=== PATIENT | male | born 1960 | race African-American/Black ===

== ENCOUNTER 2019-01-05 14:58 | Emergency (ER) | payer MEDICAID ==
[~2019-01-05] VITALS: Ht 177.8 cm; Wt 104.5 kg
[~2019-01-05 14:58] MED LIST: AMLO5TAB4 PO; ATEN50TA PO; ATENOLOL; FERR-63 PO; LOSA50TA3 PO; vicodin 5/325 PO
[2019-01-05 15:42] VITALS: BP 193/96
== END 2019-01-05 20:33 | disposition left against medical advice (07) ==
LOC: ER 15:32
DX: R51 Headache (principal); Z53.21 Procedure and treatment not carried out due to patient leaving prior to being seen by health care provider

== ENCOUNTER 2020-01-25 16:42 | Inpatient (IN) | payer MEDICAID ==
[~2020-01-25] VITALS: Ht 180.3 cm; Wt 105.7 kg
[2020-01-25] MEDS ORDERED: SODIUM CHLORIDE 0.9% 1,000 ML IV ONE (17:32)
[2020-01-25] MEDS ORDERED: CLONIDINE 0.1MG TABLET PO ONE ×2 (17:45→19:45)
[2020-01-25 17:46] LABS: CLARITY URINE CLEAR (CLEAR); COLOR URINE DARK YELLOW (YELLOW); KETONES URINE NEGATIVE (NEGATIVE); LEUKOCYTE ESTERASE URINE NEGATIVE (NEGATIVE); NITRITE URINE NEGATIVE (NEGATIVE); OCCULT BLOOD URINE NEGATIVE (NEGATIVE); PH URINE 5.5 (4.5-8.0); PROTEIN URINE NEGATIVE (NEGATIVE); SPECIFIC GRAVITY URINE 1.019 (1.005-1.030)
[2020-01-25 17:53] LABS: EOSINOPHILS % 0.5 % (0.0-5.0); HEMATOCRIT. 47.4 % (42.0-52.0); HEMOGLOBIN. 16.4 g/dL (14.0-18.0); LYMPHOCYTES % 20.9 % (20.0-50.0); MEAN CORPUSCULAR HEMOGLOBIN 31.9 pg (28.0-32.0); MEAN CORPUSCULAR VOLUME 92.6 fL (80.0-94.0); MEAN PLATELET VOLUME 7.9 fl (7.4-10.4); MONOCYTES % 9.9 % (2.0-8.0); NEUTROPHILS % 67.7 % (40.0-76.0); PLATELET 267 x1000/uL (130-400); RED BLOOD CELL COUNT 5.12 mill/uL (4.7-6.1); RED CELL DISTRIBUTION WIDTH 13.3 % (11.6-14.6)
[2020-01-25 17:59] LABS: *BARBITURATES SCREEN URINE NEGATIVE (NEGATIVE)
[2020-01-25 18:00] LABS: CHLORIDE 103 mEq/L (98-107)
[2020-01-25 18:00] LABS: *AMPHETAMINES SCREEN URINE NEGATIVE (NEGATIVE); *BENZODIAZEPINES SCREEN URINE NEGATIVE (NEGATIVE); *COCAINE SCREEN URINE NEGATIVE (NEGATIVE); CANNABINOID URINE SCREEN NEGATIVE (NEGATIVE); METHADONE URINE SCREEN NEGATIVE (NEGATIVE); OPIATES URINE SCREEN NEGATIVE (NEGATIVE); PHENCYCLIDINE URINE SCREEN NEGATIVE (NEGATIVE)
[2020-01-25 18:04] LABS: ETHANOL BLOOD < 10 mg/dL
[2020-01-25 18:14] LABS: PARTIAL THROMBOPLASTIN TIME 30.3 sec (23.4-31.0); PROTHROMBIN TIME 10.8 sec (9.6-11.0)
[2020-01-25] MEDS ORDERED: ONDANSETRON HCL 4MG/2ML INJ IV ONE (19:45)
[2020-01-25] MEDS ORDERED: MORPHINE SULFATE 4 MG/ML CPJ (NOT FOR IM USE) IV ONE (19:45)
[2020-01-26] VITALS: BP 140/72
[2020-01-26 09:00] VITALS: BP 166/80
[2020-01-26] MEDS ORDERED: HYDR-3281 PO (09:28)
[2020-01-26] MEDS ORDERED: ONDANSETRON HCL 4MG/2ML INJ IV PRN (10:15)
[2020-01-26] MEDS ORDERED: IPRATROPIUM/ALBUTEROL 0.5-3(2.5)MG/3ML NEB NEB PRN (10:15)
[2020-01-26] MEDS ORDERED: GUAIFENESIN 200MG/10ML SUGAR FREE UDC PO PRN (10:15)
[2020-01-26] MEDS ORDERED: NA PHOS,M-B/NA PHOS,DI-BA ENEMA 118ML PR PRN (10:15)
[2020-01-26] MEDS ORDERED: ACETAMINOPHEN 650MG SUPP PR PRN ×2 (10:15)
[2020-01-26] MEDS ORDERED: ACETAMINOPHEN 325MG TABLET PO PRN (10:15)
[2020-01-26] MEDS ORDERED: HYDRALAZINE 20MG/ML VIAL IV PRN (10:15)
[2020-01-26] MEDS ORDERED: ACETAMINOPHEN 650MG/20.3ML UDC GT PRN ×2 (10:15)
[2020-01-26] MEDS ORDERED: HYDROCODONE/ACETAMINOPHEN 5/325MG TABLET PO PRN (10:15)
[2020-01-26] MEDS ORDERED: DOCUSATE SODIUM 100MG CAPSULE PO PRN (10:15)
[2020-01-26] MEDS ORDERED: MAGNESIUM/ALUMINUM HYDROXIDE/SIMETHICONE 30ML UDC PO PRN (10:15)
[2020-01-26] MEDS ORDERED: POTASSIUM CHLORIDE 20MEQ TABLET SR PO NR (10:30)
[2020-01-26] MEDS: AMLODIPINE 5MG TABLET PO SCH (10:42)
[2020-01-26] MEDS ORDERED: ENOXAPARIN 40MG/0.4ML SYR SUBCUT SCH (11:00)
[2020-01-26 12:00] VITALS: BP_SYST 148; BP_SYST 175; BP_SYST 184; BP_DIAS 100; BP_DIAS 102; BP_DIAS 76
[2020-01-26] MEDS: LOSARTAN POTASSIUM 50 MG TABLET PO SCH (12:26)
[2020-01-26] MEDS: ASPIRIN 81MG EC TABLET PO SCH (12:26)
[2020-01-26 12:43] LABS: CLARITY URINE CLEAR (CLEAR); COLOR URINE YELLOW (YELLOW); KETONES URINE NEGATIVE (NEGATIVE); LEUKOCYTE ESTERASE URINE NEGATIVE (NEGATIVE); NITRITE URINE NEGATIVE (NEGATIVE); OCCULT BLOOD URINE NEGATIVE (NEGATIVE); PH URINE 7.5 (4.5-8.0); PROTEIN URINE NEGATIVE (NEGATIVE); UROBILINOGEN URINE >=8.0 E.U./dL (0.2-1.0)
[2020-01-26 16:00] VITALS: BP 184/102
[2020-01-26] MEDS ORDERED: HYDRALAZINE 20MG/ML VIAL IV NR (16:30)
[2020-01-26 17:45] VITALS: BP 156/87
[2020-01-26 20:00] VITALS: BP_SYST 118; BP_SYST 156; BP_DIAS 70; BP_DIAS 97
[2020-01-26] MEDS ORDERED: FAMOTIDINE 20MG TABLET PO SCH (21:00)
[2020-01-26 21:24] LABS: BASOPHILS % 0.5 % (0.0-2.0); EOSINOPHILS % 0.5 % (0.0-5.0); HEMATOCRIT. 45.8 % (42.0-52.0); HEMOGLOBIN. 15.9 g/dL (14.0-18.0); LYMPHOCYTES % 19.1 % (20.0-50.0); MEAN CORPUSCULAR HEMOGLOBIN 31.9 pg (28.0-32.0); MEAN CORPUSCULAR VOLUME 91.9 fL (80.0-94.0); MEAN PLATELET VOLUME 8.6 fl (7.4-10.4); MONOCYTES % 10.3 % (2.0-8.0); NEUTROPHILS % 69.6 % (40.0-76.0); PLATELET 258 x1000/uL (130-400); RED BLOOD CELL COUNT 4.98 mill/uL (4.7-6.1); RED CELL DISTRIBUTION WIDTH 13.8 % (11.6-14.6)
[2020-01-26 21:27] LABS: CHLORIDE 106 mEq/L (98-107)
[2020-01-26 21:37] LABS: CREATINE KINASE 163 IU/L (39-308)
[2020-01-26 23:50] LABS: CREATINE KINASE 151 IU/L (39-308)
[2020-01-26 23:52] LABS: CREATINE KINASE MB FRACTION 1.4 ng/mL (0.5-3.6)
[2020-01-27] VITALS: BP 140/72
[2020-01-27 04:00] VITALS: BP 147/82
[2020-01-27 07:30] LABS: BASOPHILS % 0.7 % (0.0-2.0); EOSINOPHILS % 0.7 % (0.0-5.0); HEMATOCRIT. 44.1 % (42.0-52.0); HEMOGLOBIN. 15.7 g/dL (14.0-18.0); LYMPHOCYTES % 21.9 % (20.0-50.0); MEAN CORPUSCULAR HEMOGLOBIN 32.5 pg (28.0-32.0); MEAN CORPUSCULAR VOLUME 91.4 fL (80.0-94.0); MEAN PLATELET VOLUME 8.1 fl (7.4-10.4); MONOCYTES % 10.3 % (2.0-8.0); NEUTROPHILS % 66.4 % (40.0-76.0); PLATELET 240 x1000/uL (130-400); RED BLOOD CELL COUNT 4.83 mill/uL (4.7-6.1); RED CELL DISTRIBUTION WIDTH 13.6 % (11.6-14.6)
[2020-01-27 07:50] LABS: CHLORIDE 110 mEq/L (98-107)
[2020-01-27 07:57] LABS: LDL CHOLESTEROL 136 mg/dL (5-100)
[2020-01-27 07:58] LABS: HDL CHOLESTEROL 30 mg/dL (40-59); T4 FREE 1.51 ng/dL (0.76-1.46)
[2020-01-27 08:00] VITALS: BP_SYST 142; BP_SYST 146; BP_SYST 149; BP_DIAS 83; BP_DIAS 89; BP_DIAS 92
[2020-01-27] MEDS: ASPIRIN 81MG EC TABLET PO SCH (08:29)
[2020-01-27] MEDS: AMLODIPINE 5MG TABLET PO SCH (08:29)
[2020-01-27] MEDS: LOSARTAN POTASSIUM 50 MG TABLET PO SCH (08:29)
[2020-01-27 12:00] VITALS: BP_SYST 73
[2020-01-27 12:15] VITALS: BP 117/73
[2020-01-27 12:58] LABS: HEPATITIS B SURFACE ANTIGEN NEGATIVE
[2020-01-27 13:22] LABS: HEPATITIS A AB IGM NEGATIVE (NEGATIVE)
[2020-01-27] MEDS ORDERED: ATORVASTATIN CALCIUM 10MG TABLET PO SCH (21:00)
== END 2020-01-27 14:10 | disposition home or self-care (01) | DRG 48 ==
LOC: ER 16:42 → 7WST 01-26 00:06 → EDBEDREQDT 01-26 00:15 → EDBEDREQ 01-26 00:15 → EDBEDREQTM 01-26 00:15 → ENRESERV 01-26 08:30
PROVIDERS: ADMIT Internal Medicine; ATTEND Internal Medicine
DX: G90.8 Other disorders of autonomic nervous system (principal); I50.33 Acute on chronic diastolic (congestive) heart failure; E78.5 Hyperlipidemia, unspecified; R17 Unspecified jaundice; E87.6 Hypokalemia; F17.210 Nicotine dependence, cigarettes, uncomplicated; I11.0 Hypertensive heart disease with heart failure; I95.1 Orthostatic hypotension; R29.6 Repeated falls; R73.9 Hyperglycemia, unspecified; R00.1 Bradycardia, unspecified; Z79.899 Other long term (current) drug therapy; I69.30 Unspecified sequelae of cerebral infarction
CPT/HCPCS: 36415; 70551; 71045; 80053; 80061; 80305; 80320; 81003; 82550; 82553; 83880; 84439; 84443; 84484; 85025; 86705; 86709; 86803; 87340; 93005; 96374; 97162; 99285; J0360; J1650; J2270; J2405; J7030; G0480

== ENCOUNTER 2020-03-05 13:31 | Emergency (ER) | payer MEDICAID ==
[~2020-03-05] VITALS: Ht 185.4 cm; Wt 105.0 kg
[~2020-03-05 13:31] MED LIST changes: -ATEN50TA PO; -ATENOLOL; -FERR-63 PO; +HYDR-3281 PO; -vicodin 5/325 PO
[2020-03-05] MEDS ORDERED: ASPI-986 PO (13:48)
[2020-03-05 15:58] LABS: BASOPHILS % 0.6 % (0.0-2.0); EOSINOPHILS % 0.6 % (0.0-5.0); HEMATOCRIT. 46.4 % (42.0-52.0); HEMOGLOBIN. 16.1 g/dL (14.0-18.0); LYMPHOCYTES % 17.2 % (20.0-50.0); MEAN CORPUSCULAR HEMOGLOBIN 32.1 pg (28.0-32.0); MEAN CORPUSCULAR VOLUME 92.2 fL (80.0-94.0); MONOCYTES % 7.8 % (2.0-8.0); NEUTROPHILS % 73.8 % (40.0-76.0); PLATELET 249 x1000/uL (130-400); RED BLOOD CELL COUNT 5.03 mill/uL (4.7-6.1); RED CELL DISTRIBUTION WIDTH 13.4 % (11.6-14.6)
[2020-03-05 16:05] LABS: CHLORIDE 107 mEq/L (98-107)
[2020-03-05 16:09] LABS: PARTIAL THROMBOPLASTIN TIME 32.5 sec (23.4-31.0); PROTHROMBIN TIME 10.7 sec (9.6-11.0)
[2020-03-05] MEDS ORDERED: ASPIRIN 325MG EC TABLET PO ONE (16:30)
[2020-03-05 21:05] VITALS: BP 171/97
== END 2020-03-05 21:13 | disposition short-term general hospital (02) ==
LOC: ER 13:31 → EDBEDREQ 16:32 → EDBEDREQTM 16:32 → ER 21:13 → CANBEDREQ 21:59
DX: M62.81 Muscle weakness (generalized) (principal); I10 Essential (primary) hypertension; Z86.73 Personal history of transient ischemic attack (TIA), and cerebral infarction without residual deficits
CPT/HCPCS: 36415; 71045; 80053; 82962; 83880; 84484; 85025; 93005; 99285